=== PATIENT | male | born 1950 | race Caucasian/White ===

== ENCOUNTER 2016-12-23 14:15 | Emergency (ER) | payer OTHER ==
[~2016-12-23] VITALS: Ht 172.7 cm; Wt 68.0 kg
[2016-12-23 14:16] VITALS: BP 142/94; PULSE 85; RESP 20; TEMP 98.9; O2SAT 98
[2016-12-23] MEDS ORDERED: SODIUM CHLOR 0.9% 1000 ML INJ 1,000 ML IV SCH (14:55)
[2016-12-23] MEDS ORDERED: PIPERACIL-TAZO 3.375 GM PREMIX 50 ML IV ONE (15:00)
[2016-12-23] MEDS ORDERED: MORPHINE SULFATE 4 MG/ML INJ IV PUSH ONE (15:15)
[2016-12-23] MEDS ORDERED: ONDANSETRON HCL 4 MG/2 ML VIAL IV PUSH ONE (15:15)
--- NOTE | 2016-12-23 15:21 | RADRPT ---
EXAM DATE/TIME: 12/23/2016 15:01 [facility] COMPARISON: No previous studies available for comparison. INDICATIONS : Evaluate for pneumonia, pneumothorax, or communicable disease. Pre-op left hand surgery MEDICAL HISTORY : None. SURGICAL HISTORY : None. ENCOUNTER: Initial ACUITY: 1 day PAIN SCORE: 0/10 LOCATION: Bilateral chest FINDINGS: A single view of the chest demonstrates the lungs to be symmetrically aerated without evidence of mas s, infiltrate or effusion. The cardiomediastinal contours are unremarkable. Osseous structures are intact. CONCLUSION: The lungs are clear. Harvey Aburto MD on December 23, 2016 at 15:20 Board Certified Radiologist. This report was verified electronically.
--- NOTE | 2016-12-23 15:24 | RADRPT ---
EXAM DATE/TIME: 12/23/2016 14:58 [facility] COMPARISON: No previous studies available for comparison. INDICATIONS : Left hand pain, swelling after patient lacerated his hand on table saw yesterday MEDICAL HISTORY : None. SURGICAL HISTORY : None. ENCOUNTER: Initial ACUITY: 1 day PAIN SCORE: 5/10 LOCATION: Left posterior and lateral hand FINDINGS: There is moderate soft tissue swelling about the 2nd digit. There is a solitary radiopaque foreign b addison seen in the soft tissues about the lateral aspect of the 2nd digit superficial to the proximal ph alanx which measures approximately 1 mm in size. This is seen on all 3 views. The osseous structure s are grossly intact. No fractures or focal areas of destruction seen. Incidental note of an osseou s cyst in the distal ulna. CONCLUSION: 1. No evidence of recent bony injury. 2. Probable small foreign body in the soft tissues of the 2nd digit proximal lateral. Harvey Aburto MD on December 23, 2016 at 15:20 Board Certified Radiologist. This report was verified electronically.
--- NOTE | 2016-12-23 15:25 | RADRPT ---
EXAM DATE/TIME: 12/23/2016 15:00 [facility] COMPARISON: No previous studies available for comparison. INDICATIONS : Left distal forearm pain, swelling after patient lacerated his hand on table saw yesterday MEDICAL HISTORY : None. SURGICAL HISTORY : None. ENCOUNTER: Initial ACUITY: 1 day PAIN SCORE: 5/10 LOCATION: Left distal forearm FINDINGS: Three view examination of the left wrist demonstrates no soft tissue swelling, dislocation, or fractu re. The carpal bones are in normal alignment. The joint spaces are maintained. There is an osseous system the epiphysis of the distal ulna with a thin sclerotic rim. The cortex of the distal ulna is intact. Bony mineralization is normal. CONCLUSION: No evidence of recent bone injury. No radiopaque foreign bodies. Harvey Aburto MD on December 23, 2016 at 15:22 Board Certified Radiologist. This report was verified electronically.
[2016-12-23] MEDS ORDERED: OMEP20CA2 PO (15:42)
[2016-12-23] MEDS ORDERED: FLUT1SPR5 EACH NARE (15:42)
[2016-12-23] MEDS ORDERED: DICL1GEL TOPICAL (15:42)
[2016-12-23] MEDS ORDERED: VENTAER INH (15:42)
[2016-12-23] MEDS ORDERED: LIDOCAINE 1%/EPINEPHrine 1:100,000 SOLN 20 ML VIAL INFIL ONE (15:45)
[2016-12-23] MEDS ORDERED: ROPI3TAB PO (15:45)
[2016-12-23] MEDS ORDERED: QUET5TAB PO (15:45)
[2016-12-23] MEDS ORDERED: GABA400C5 PO (15:48)
[2016-12-23] MEDS ORDERED: VENL150C39 PO (15:48)
[2016-12-23] MEDS ORDERED: TERA10CA3 PO (15:48)
--- NOTE | 2016-12-23 16:23 | PD ---
HPI Chief Complaint: Injury Time Seen by Provider: 16:10 Travel History International Travel<30 days: No Contact w/Intl Traveler<30days: No Traveled to known affect area: No History of Present Illness HPI 66-year-old male that presents to the ED for evaluation of left wrist injury. Per patient he was using a table saw at home helping a friend make a deck when he lost control of the suicidal and a metal part hit him on his left wrist. Per patient she had a cut and he felt that he went through and he was able to remove it himself. Per patient he had a basic bump on his scaphoid area and he pushed it back in per patient. Per patient he went to an urgent care at [place] and he had x-rays and was told to come here for dislocate trapezoid with open dislocation. X-rays were no sent here. Patient states that his pain is 9 out of 10. Per patient never concerned because he was having some numbness to the first and second digit. He is able to move it fully but he cannot fully flex the left thumb. Patient does have scaphoid bone tenderness to palpation as well as swelling noted. Patient has an allergy to contrast media. Per patient he has no other injuries. He is up-to-date with his tetanus. He states that the pain does radiate to the elbow. PFSH Past Medical History COPD: Yes Diminished Hearing: Yes Genitourinary: Yes (enlarged prostate) Psychiatric: Yes (ptsd) Past Surgical History Eye Surgery: Yes (cornel cataract sx) Social History Alcohol Use: No Tobacco Use: No Substance Use: No Allergies-Medications (Allergen,Severity, Reaction): Coded Allergies: Contrast Media (Verified Allergy, Severe, 12/23/16) Reported Meds & Prescriptions Reported Meds & Active Scripts Active Reported Gabapentin 400 Mg Cap 400 Cap PO HS Venlafaxine ER 24 HR (Venlafaxine HCl) 150 Mg Cap 300 Mg PO DAILY Terazosin (Terazosin HCl) 10 Mg Cap 10 Mg PO HS Ropinirole 3 Mg Tab 3 Mg PO HS Quetiapine (Quetiapine Fumarate) 50 Mg Tab 75 Mg PO HS Omeprazole 20 Mg Cap 20 Mg PO BID Flonase Nasal Valders (Fluticasone Nasal Valders) 50 Mcg/Act Valders 1 Valders EACH NARE DAILY Voltaren Topical (Diclofenac Topical) 1% Gel 2 Gm TOPICAL QID PRN Ventolin Hfa 18 GM Inh (Albuterol Sulfate) 90 Mcg/Act Aer 2 Puff INH QID PRN Review of Systems Except as stated in HPI: all other systems reviewed are Neg Physical Exam Narrative GENERAL: SKIN: Warm and dry. Patient has what appears to be a superficial laceration to the webspace between the first and second digit closer to the wrist. About 2 cm in length horizontal. Very superficial. Cannot see any sign of more internal injury. Only skin appears to have been damaged. Patient also has 2 smaller 1 cm skin avulsions closer to the wrist but they do not appear to open. And again they appear to be very superficial as well. HEAD: Atraumatic. Normocephalic. EYES: Pupils equal and round. No scleral icterus. No injection or drainage. ENT: No nasal bleeding or discharge. Mucous membranes pink and moist. Tongue is midline. No uvula deviation. NECK: Trachea midline. No JVD. CARDIOVASCULAR: Regular rate and rhythm. No murmurs, S3, S4. RESPIRATORY: No accessory muscle use. Clear to auscultation. Breath sounds equal bilaterally. GASTROINTESTINAL: Abdomen soft, non-tender, nondistended. Hepatic and splenic margins not palpable. MUSCULOSKELETAL: Extremities without clubbing, cyanosis, or edema. No obvious deformities. Patient has scaphoid bone tenderness to palpation on the left wrist with some bruising and swelling. Patient does have what appears to be lacerations very superficial to the dorsal aspect of the webspace between the first and second digit. Patient does have good capillary for mild digits. Patient able to move the index finger fully with extension as well as abduction and adduction but he cannot completely flex it on the DIP. He has good capillary refill. Sensation appears to be intact although he does state having some subjective numbness to the digits. No obvious deficits noted by me. No obvious bony deformity noted but patient does have a lot of swelling noted on the scaphoid area over the left wrist. NEUROLOGICAL: Awake and alert. No obvious cranial nerve deficits. Motor grossly within normal limits. Five out of 5 muscle strength in the arms and legs. Normal speech. PSYCHIATRIC: Appropriate mood and affect; insight and judgment normal. Data Data Last Documented VS Vital Signs Date Time Temp Pulse Resp B/P Pulse Ox O2 Delivery O2 Flow Rate FiO2 12/23/16 14:16 98.9 85 20 142/94 98 Room Air Orders Hand, Complete ([id number]) (12/23/16 14:39) Ice/Cold Pack (12/23/16 14:39) Electrocardiogram (12/23/16 14:50) Chest, Single Ap (12/23/16 14:50) Iv Access Insert/Monitor (12/23/16 14:50) Wrist, Complete ([id number]) (12/23/16 ) Piperacil-Tazo 3.375 Gm Premix (Zosyn 3. (12/23/16 15:00) Sodium Chlor 0.9% 1000 Ml Inj (Ns 1000 M (12/23/16 14:55) Morphine Inj (Morphine Inj) (12/23/16 15:15) Ondansetron Inj (Zofran Inj) (12/23/16 15:15) Wound Care (12/23/16 15:45) Lidocai-Epi 1%-1:100,000 Inj (Xylocaine- (12/23/16 15:45) Splint Or Brace Apply/Monitor (12/23/16 15:46) MDM Medical Decision Making Medical Screen Exam Complete: Yes Emergency Medical Condition: Yes Medical Record Reviewed: Yes Interpretation(s) Last Impressions Chest X-Ray 12/23/16 1450 Signed Impressions: Service Date/Time: Friday, December 23, 2016 15:01 - CONCLUSION: The lungs are clear. Harvey Aburto MD Hand X-Ray 12/23/16 1439 Signed Impressions: Service Date/Time: Friday, December 23, 2016 14:58 - CONCLUSION: 1. No evidence of recent bony injury. 2. Probable small foreign body in the soft tissues of the 2nd digit proximal lateral. Harvey Aburto MD Wrist X-Ray 12/23/16 0000 Signed Impressions: Service Date/Time: Friday, December 23, 2016 15:00 - CONCLUSION: No evidence of recent bone injury. No radiopaque foreign bodies. Harvey Aburto MD Differential Diagnosis Fracture versus dislocation versus bruise versus contusion Narrative Course 66-year-old male that presents to the ED for evaluation of injury to his left hand and wrist. Patient was properly examined and was found to have signs and symptoms concerning for fractures. Unfortunately patient did not come with the x-ray reports. I didn't got the report from the urgent care that apparently patient has a dislocated trapezius with an open dislocation. My exam patient cannot fully flex the digit but able to bend it. He has no neurological deficits that I can see on my physical exam that he does state having subjective numbness. At this time I recommend x-rays and labs for possible surgery. X-ray showed no sign of acute disease other than possible foreign body to the left index finger but there is no sign of injury on this digit from the injury today. Case was discussed in my attending Dr. Lovell who recommends speaking with hand surgeon. I spoke with Dr. Connor over the phone who wanted pictures be sent to him by phone. I sent the pictures after getting verbal consent from the patient to get this done. Review the pictures as well as my physical exam and he agrees the patient does not require surgery at this time. There is no sign of acute bony distress at this time. My recommendation and his recommendation is to put in a splint and follow-up in his office. He did ask me to see if I could repair the laceration measured patient doesn't have any deep lacerations. After explained procedure to the patient and he agreed. Using 1% lidocaine I anesthetized the area. The patient had a superficial laceration. I try to assess as i can but there is no obvious sign of open injury. Laceration appears to be more of a skin tear with no sign of obvious and the point. Patient has 2 other wounds as well but there are also skin avulsions and no deeper wounds that I could assess. Therefore I left the wounds alone. Did wash them with saline and Betadine. Patient was reassured. At this time I recommend splint. Patient was put in a splint. Patient will be sent home with prescriptions for antibiotics and pain medication and recommend. Ice. Follow with PCP. See ED worsening symptoms. Patient was given information for Dr. Connor. I did order labs initially as patient was sent here for possible surgery but they were canceled after x-rays were reviewed and there was no sign of bony injury. Diagnosis Primary Impression: Wrist contusion Qualified Code: S60.212A - Contusion of left wrist, initial encounter Additional Impression: Skin avulsion Referrals: Calos Connor III, MD Patient Instructions: General Instructions Additional Instructions: Take medications as prescribed. Follow-up with PCP as well as hand surgeon. See ED for any worsening symptoms. Do not drink or drive while taking pain medication. Apply ice or heat as needed for pain Med/Other Pt SpecificInfo: Prescription(s) given Disposition: 01 DISCHARGE HOME Condition: Stable Wilfrido Tavera Dec 23, 2016 16:23
[2016-12-23 16:24] VITALS: RESP 20
[2016-12-23] MEDS ORDERED: CEPH-460 PO (16:25)
[2016-12-23] MEDS ORDERED: HYDR-3533 PO (16:25)
--- NOTE | 2016-12-24 14:35 | EKG ---
Date Performed: 12/23/2016 Time Performed: 15:16:22 PTAGE: 66 years EKG: SINUS BRADYCARDIA LOW QRS VOLTAGE IN EXTREMITY LEADS Probable normal tracing NO PREVIOUS TRACING DOCTOR: Francisco Ceballos Interpretating Date/Time 12/24/2016 14:34:13
== END 2016-12-23 17:50 | disposition home or self-care (01) ==
LOC: NEPD 14:15
DX: S60.212A Contusion of left wrist, initial encounter (principal); S61.412A Laceration without foreign body of left hand, initial encounter; R00.1 Bradycardia, unspecified; H91.90 Unspecified hearing loss, unspecified ear; Z87.09 Personal history of other diseases of the respiratory system; Z87.438 Personal history of other diseases of male genital organs; Z86.59 Personal history of other mental and behavioral disorders; W22.8XXA Striking against or struck by other objects, initial encounter; Y93.H3 Activity, building and construction
CPT/HCPCS: 29125; 71010; 73110; 73130; 93005; 96365; 96375; 99283; J2270; J2405; J2543; J7030